=== PATIENT | female | born 1950 | race Asian ===

== ENCOUNTER 2017-02-11 08:03 | Outpatient (CLI) | payer OTHER ==
[~2017-02-11 08:03] MED LIST: GLIP10TA55 PO; HYDR25TA15 PO; LANTUS100 MG/ML SC; LISI5TAB10 PO; MOTRIN IB200 MG OR; PRAVACHOL20 MG PO
== END 2017-02-11 08:05 | disposition short-term general hospital (02) ==
LOC: AMB 08:03
DX: M54.5 Low back pain (principal); R20.0 Anesthesia of skin
CPT/HCPCS: A0425; A0427

== ENCOUNTER 2017-03-02 09:59 | Outpatient (CLI) | payer OTHER | END 2017-03-02 10:19 | disposition short-term general hospital (02) | LOC: AMB 09:59 | DX: M79.605 Pain in left leg (principal); M79.604 Pain in right leg; M54.89 Other dorsalgia | CPT/HCPCS: A0425; A0429 ==

== ENCOUNTER 2017-07-22 12:31 | Outpatient (CLI) | payer OTHER | END 2017-07-22 12:53 | disposition short-term general hospital (02) | LOC: AMB 12:31 | DX: E11.65 Type 2 diabetes mellitus with hyperglycemia (principal) | CPT/HCPCS: A0425; A0427 ==

== ENCOUNTER 2017-07-24 18:59 | Emergency (ER) | payer OTHER ==
[~2017-07-24] VITALS: Ht 165.1 cm; Wt 69.4 kg
[2017-07-24 19:19] VITALS: BP 110/74; TEMP 98.7
== END 2017-07-24 19:37 | disposition home or self-care (01) ==
LOC: ED 18:59
DX: Z48.01 Encounter for change or removal of surgical wound dressing (principal)
CPT/HCPCS: 99281

== ENCOUNTER 2018-01-17 13:17 | Outpatient (CLI) | payer OTHER | END 2018-01-17 13:20 | disposition short-term general hospital (02) | LOC: AMB 13:17 | DX: R10.84 Generalized abdominal pain (principal) | CPT/HCPCS: A0425; A0429 ==

== ENCOUNTER 2018-01-17 13:20 | Emergency (ER) | payer OTHER ==
[~2018-01-17] VITALS: Ht 162.6 cm; Wt 68.0 kg
[2018-01-17 13:36] VITALS: TEMP 98
[2018-01-17 14:43] VITALS: BP 178/82
== END 2018-01-17 14:44 | disposition home or self-care (01) ==
LOC: ED 13:20
DX: B37.9 Candidiasis, unspecified (principal)
CPT/HCPCS: 99282

== ENCOUNTER 2018-02-20 12:15 | Emergency (ER) | payer OTHER ==
[~2018-02-20] VITALS: Ht 165.1 cm; Wt 68.0 kg
[2018-02-20 12:23] VITALS: BP 165/86; TEMP 97.9
[2018-02-20 13:29] LABS: PLATELET COUNT 69 K/uL (152-353)
[2018-02-20 13:35] LABS: POTASSIUM 2.9 mmol/L (3.6-5.2)
[2018-02-20 14:09] LABS: PARTIAL THROMBOPLASTIN TIME 24.5 SECONDS (24.5-33.6)
== END 2018-02-20 15:30 | disposition home or self-care (01) ==
LOC: ED 12:15
PROVIDERS: Specialist
DX: M62.81 Muscle weakness (generalized) (principal); R93.0 Abnormal findings on diagnostic imaging of skull and head, not elsewhere classified
CPT/HCPCS: 36415; 80053; 83605; 83735; 84100; 84484; 85027; 85610; 85730; 93005; 99283

== ENCOUNTER 2018-02-21 05:47 | Emergency (ER) | payer OTHER ==
[~2018-02-21] VITALS: Ht 165.1 cm; Wt 68.0 kg
[2018-02-21 08:28] LABS: POTASSIUM 3.3 mmol/L (3.6-5.2)
[2018-02-21 09:35] LABS: PLATELET COUNT 162 K/uL (152-353)
[2018-02-21 10:48] VITALS: BP 158/75; TEMP 98.2
== END 2018-02-21 11:03 | disposition home or self-care (01) ==
LOC: ED 05:47
PROVIDERS: Specialist
DX: N39.0 Urinary tract infection, site not specified (principal); Z79.899 Other long term (current) drug therapy
CPT/HCPCS: 36415; 80053; 80307; 81000; 82550; 82553; 84484; 85027; 87040; 87086; 87088; 93005; 96365; 99284; J0690

== ENCOUNTER 2019-11-08 10:10 | Outpatient (CLI) | payer OTHER | END 2019-11-08 10:13 | disposition short-term general hospital (02) | LOC: AMB 10:10 | DX: R11.2 Nausea with vomiting, unspecified (principal); R19.7 Diarrhea, unspecified | CPT/HCPCS: A0425; A0427 ==

== ENCOUNTER 2019-11-08 10:15 | Emergency (ER) | payer OTHER ==
[~2019-11-08] VITALS: Ht 165.1 cm; Wt 68.0 kg
[2019-11-08 11:25] LABS: POTASSIUM 3.2 mmol/L (3.6-5.2)
[2019-11-08 12:22] LABS: PLATELET COUNT 124 K/uL (152-353)
[2019-11-08 20:35] VITALS: BP 152/74; TEMP 97.9
== END 2019-11-08 20:35 | disposition home or self-care (01) ==
LOC: ED 10:19
PROVIDERS: Family Medicine
DX: N39.0 Urinary tract infection, site not specified (principal); E87.6 Hypokalemia
CPT/HCPCS: 36415; 80053; 81000; 85027; 87077; 87086; 87088; 87186; 96365; 99284; J0696